=== PATIENT | female | born 1995 | race Caucasian/White ===

== ENCOUNTER 2017-04-19 00:18 | Emergency (ER) | payer SELFPAY ==
[2017-04-19 00:55] VITALS: BP 110/64; PULSE 82; TEMP 97.9; BMI 49.4
--- NOTE | 2017-04-19 00:58 | PDOC ---
History of Present Illness - General History Source: Patient Exam Limitations: No Limitations - History of Present Illness Initial Comments: 04/19/17 01:38 The patient is a 22 year old female with a significant PMH of asthma who presents to the emergency department with lower back pain beginning approximately 4 days ago. The patient reports getting up from a sitting position at Thanksgiving and suddenly developing lower back pain around the lumbar region. She describes the back pain as a burning sensation that is constant and without radiation. She reports taking Tylenol earlier today to minimal relief. 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 The patient denies chest pain, shortness of breath, headache and dizziness. Denies fever, chills, nausea, vomit, diarrhea and constipation. Denies dysuria, frequency, urgency and hematuria. Allergies: NKDA Past surgical history: None reported. Social history: No reported cigarette, alcohol, or drug use. PCP: None reported. <Dale Arias - Last Filed: 04/19/17 01:38> <Mariah Smith - Last Filed: 04/19/17 01:48> - General Chief Complaint: Back Pain Stated Complaint: LOWER BACK PAIN Time Seen by Provider: 04/19/17 00:58 Past History <Dale Arias - Last Filed: 04/19/17 01:38> - Past Medical History Asthma: No Cancer: No Cardiac Disorders: No Diabetes: No HTN: No Seizures: No Thyroid Disease: No - Suicide/Smoking/Psychosocial Hx Smoking History: Never smoked Have you smoked in the past 12 months: No Information on smoking cessation initiated: No Hx Alcohol Use: No Drug/Substance Use Hx: No Substance Use Type: None Hx Substance Use Treatment: No <Mariah Smith - Last Filed: 04/19/17 01:48> - Past Medical History Allergies/Adverse Reactions: Allergies Allergy/AdvReac Type Severity Reaction Status Date / Time strawberry [[place]] Allergy Severe Verified 04/19/17 00:47 No Known Drug Allergies Allergy Verified 04/19/17 00:47 Home Medications: Ambulatory Orders No Home Medications 0 dose .ROUTE UTDICT 01/22/13 Ibuprofen [Motrin -] 600 mg PO TID #21 tablet 04/19/17 Ibuprofen [Motrin -] 600 mg PO TID #30 tablet 04/19/17 Methocarbamol [Robaxin -] 500 mg PO TID #30 tablet 04/19/17 Review of Systems - Review of Systems Able to Perform ROS?: Yes Comments:: 04/19/17 01:39 GENERAL/CONSTITUTIONAL: No fever or chills. No weakness. HEAD, EYES, EARS, NOSE AND THROAT: No change in vision. No ear pain or discharge. No sore throat. CARDIOVASCULAR: No chest pain or shortness of breath. RESPIRATORY: No cough, wheezing, or hemoptysis. GASTROINTESTINAL: No nausea, vomiting, diarrhea or constipation. GENITOURINARY: No dysuria, frequency, or change in urination. MUSCULOSKELETAL: (+) Lower back pain. No joint pain. No neck pain. SKIN: No rash NEUROLOGIC: No headache, vertigo, loss of consciousness, or change in strength/ sensation. ENDOCRINE: No increased thirst. No abnormal weight change. HEMATOLOGIC/LYMPHATIC: No anemia, easy bleeding, or history of blood clots. ALLERGIC/IMMUNOLOGIC: No hives or skin allergy. <Dale Arias - Last Filed: 04/19/17 01:38> *Physical Exam - Vital Signs Last Vital Signs Temp Pulse Resp BP Pulse Ox 97.9 F 82 20 110/64 99 04/19/17 00:53 04/19/17 00:53 04/19/17 00:53 04/19/17 00:53 04/19/17 00:53 - Physical Exam Comments: 04/19/17 01:39 GENERAL: Awake, alert, and fully oriented, in no acute distress HEAD: No signs of trauma EYES: PERRLA, EOMI, sclera anicteric, conjunctiva clear ENT: Auricles normal inspection, hearing grossly normal, nares patent, oropharynx clear without exudates. Moist mucosa NECK: Normal ROM, supple, no lymphadenopathy, JVD, or masses LUNGS: Breath sounds equal, clear to auscultation bilaterally. No wheezes, and no crackles HEART: Regular rate and rhythm, normal S1 and S2, no murmurs, rubs or gallops ABDOMEN: Soft, nontender, normoactive bowel sounds. No guarding, no rebound. No masses EXTREMITIES: (+) Positive straight leg test to right leg. (+) Back pain reproducible with right leg movement. Normal range of motion, no edema. No clubbing or cyanosis. No cords, erythema, or tenderness NEUROLOGICAL: Cranial nerves II through XII grossly intact. Normal speech, normal gait SKIN: Warm, Dry, normal turgor, no rashes or lesions noted. <Dale Arias - Last Filed: 04/19/17 01:38> - Vital Signs Last Vital Signs Temp Pulse Resp BP Pulse Ox 97.9 F 82 20 110/64 99 04/19/17 00:53 04/19/17 00:53 04/19/17 00:53 04/19/17 00:53 04/19/17 00:53 <Mairah Smith - Last Filed: 04/19/17 01:48> ED Treatment Course - ADDITIONAL ORDERS Additional order review: Laboratory Results 04/19/17 00:51 Urine Color Yellow Urine Appearance Slcloudy Urine pH 5.0 Ur Specific Portal 1.030 Urine Protein Negative Urine Glucose (UA) Negative Urine Ketones Negative Urine Blood Negative Urine Nitrite Negative Urine Bilirubin Negative Urine Urobilinogen Negative Urine HCG, Qual Negative - Medications Given in the ED: ED Medications Discontinued Medications Generic Name Dose Route Start Last Admin Trade Name Freq PRN Reason Stop Dose Admin Methocarbamol 1,000 mg 04/19/17 01:10 04/19/17 01:12 Robaxin - PO 04/19/17 01:11 1,000 mg ONCE ONE Administration <Dale Arias - Last Filed: 04/19/17 01:38> Medical Decision Making - Medical Decision Making 04/19/17 01:48 Patient Name: KATIA DUBON THIS IS A PRELIMINARY REPORT FROM [facility] DATE OF SERVICE: 2017-04-19 01:12:49 IMAGES: 439 EXAM: CT LUMBAR SPINE without contrast HISTORY: Burning sensation COMPARISON: None. FINDINGS: This there is a mild grade 1 anterolisthesis of L5 on S1 associated with bilateral L5 pars defects/spondylolyses. There is also disc bulging at this level. These findings do not appear to narrow the canal but may narrow the foramina slightly. No other bony or disc degenerative disease is noted. No stenosis of the lumbar bony canal. No acute lumbar fracture <Mariah Smith - Last Filed: 04/19/17 01:48> *DC/Admit/Observation/Transfer - Attestations Scribe Attestion: 04/19/17 01:39 Documentation prepared by Dale Arias, acting as medical claims analyst for Mariah Smith MD. <Dale Arias - Last Filed: 04/19/17 01:38> - Discharge Dispostion Admit: No <Mariah Smith - Last Filed: 04/19/17 01:48> Diagnosis at time of Disposition: Bulging disc - Discharge Dispostion Disposition: HOME Condition at time of disposition: Stable - Prescriptions Prescriptions: Ibuprofen [Motrin -] 600 mg PO TID #21 tablet Ibuprofen [Motrin -] 600 mg PO TID #30 tablet Methocarbamol [Robaxin -] 500 mg PO TID #30 tablet
[2017-04-19 01:00] LABS: URINE APPEARANCE SLCLOUDY; URINE BILIRUBIN NEGATIVE (NEGATIVE); URINE BLOOD NEGATIVE (NEGATIVE); URINE COLOR YELLOW; URINE GLUCOSE (UA) NEGATIVE (NEGATIVE); URINE KETONE NEGATIVE (NEGATIVE); URINE NITRITE NEGATIVE (NEGATIVE); URINE PROTEIN NEGATIVE (NEGATIVE); URINE UROBILINOGEN NEGATIVE mg/dL (0.2-1.0)
[2017-04-19] MEDS ORDERED: METHOCARBAMOL 500 MG TABLET PO ONE (01:10)
[2017-04-19] MEDS ORDERED: METHOCARBAMOL 500 MG TABLET ONE (01:13)
[2017-04-19 12:27] LABS: URINE LEUK ESTERASE TRACE (NEGATIVE)
[2017-04-19 15:28] LABS: CALCIUM OXALATE CRYSTALS MANY /hpf (NONE SEEN)
== END 2017-04-19 02:07 | disposition home or self-care (01) ==
LOC: JER 00:18
DX: M51.27 Other intervertebral disc displacement, lumbosacral region (principal); X50.1XXA Overexertion from prolonged static or awkward postures, initial encounter; Y93.89 Activity, other specified; Y92.89 Other specified places as the place of occurrence of the external cause; Y99.8 Other external cause status
CPT/HCPCS: 72131-TC; 81003; 81015; 84703; 99282-25

== ENCOUNTER 2018-02-01 20:50 | Emergency (ER) | payer OTHER ==
[2018-02-01 21:08] VITALS: BP 119/68; PULSE 82; TEMP 98.2; BMI 35.7
--- NOTE | 2018-02-01 21:51 | PDOC ---
History of Present Illness <Lito Silveira - Last Filed: 02/02/18 00:24> - General History Source: Patient Exam Limitations: No Limitations - History of Present Illness Initial Comments: 02/01/18 21:44 Patient is a 23F with history of asthma here today after stepping with an inverted R foot today. Patient states that she was walking down stairs when her foot buckled in and heard a pop. Patient was not able to walk after. Denies head /neck trauma and falling to the ground. LMP 01/05. Given fentanyl by EMS. <CezarDon - Last Filed: 02/02/18 00:40> - General Chief Complaint: Injury Stated Complaint: FALL Time Seen by Provider: 02/01/18 21:13 Past History <Lito Silveira - Last Filed: 02/02/18 00:24> - Past Medical History Asthma: No Cancer: No Cardiac Disorders: No COPD: No Diabetes: No HTN: No Seizures: No Thyroid Disease: No - Immunization History Immunization Up to Date: Yes - Suicide/Smoking/Psychosocial Hx Smoking History: Never smoked Have you smoked in the past 12 months: No Information on smoking cessation initiated: No Hx Alcohol Use: No Drug/Substance Use Hx: No Substance Use Type: None Hx Substance Use Treatment: No <Don Robb - Last Filed: 02/02/18 00:40> - Past Medical History Allergies/Adverse Reactions: Allergies Allergy/AdvReac Type Severity Reaction Status Date / Time strawberry [[place]] Allergy Severe Verified 02/01/18 21:06 No Known Drug Allergies Allergy Verified 02/01/18 21:06 Home Medications: Ambulatory Orders No Home Medications 0 dose .ROUTE UTDICT 01/22/13 Review of Systems - Review of Systems Comments:: 02/01/18 21:51 GENERAL/CONSTITUTIONAL: No fever or chills. No weakness. HEAD, EYES, EARS, NOSE AND THROAT: No change in vision. No ear pain or discharge. No sore throat. CARDIOVASCULAR: No chest pain or shortness of breath RESPIRATORY: No cough, wheezing, or hemoptysis. GASTROINTESTINAL: No nausea, vomiting, diarrhea or constipation. GENITOURINARY: No dysuria, frequency, or change in urination. MUSCULOSKELETAL: +r foot pain. No neck or back pain. SKIN: No rash NEUROLOGIC: No headache, vertigo, loss of consciousness, or change in strength/ sensation. ENDOCRINE: No increased thirst. No abnormal weight change HEMATOLOGIC/LYMPHATIC: No anemia, easy bleeding, or history of blood clots. ALLERGIC/IMMUNOLOGIC: No hives or skin allergy. <Don Robb - Last Filed: 02/02/18 00:40> *Physical Exam - Vital Signs Last Vital Signs Temp Pulse Resp BP Pulse Ox 98.2 F 82 22 119/68 98 02/01/18 21:07 02/01/18 21:07 02/01/18 21:07 02/01/18 21:07 02/01/18 21:07 <Lito Silveira - Last Filed: 02/02/18 00:24> - Vital Signs Last Vital Signs Temp Pulse Resp BP Pulse Ox 98.2 F 82 22 119/68 98 02/01/18 21:07 02/01/18 21:07 02/01/18 21:07 02/01/18 21:07 02/01/18 21:07 - Physical Exam Comments: 02/01/18 21:52 GENERAL: Awake, alert, and fully oriented, in no acute distress R LEG: Tender to tib/fib compression, hematoma on lateral aspect of hematoma, diffusely tender, neurovascularly intact HEAD: No signs of trauma, normocephalic, atraumatic EYES: PERRLA, EOMI, sclera anicteric, conjunctiva clear ENT: Auricles normal inspection, hearing grossly normal, nares patent, oropharynx clear without exudates. Moist mucosa NECK: Normal ROM, supple, no lymphadenopathy, JVD, or masses LUNGS: No distress, speaks full sentences, clear to auscultation bilaterally HEART: Regular rate and rhythm, normal S1 and S2, no murmurs, rubs or gallops, peripheral pulses normal and equal bilaterally. ABDOMEN: Soft, nontender, normoactive bowel sounds. No guarding, no rebound. No masses EXTREMITIES: Normal inspection, Normal range of motion, no edema. No clubbing or cyanosis. NEUROLOGICAL: Cranial nerves II through XII grossly intact. Normal speech, no focal sensorimotor deficits SKIN: Warm, Dry, normal turgor, no rashes or lesions noted. <Don Robb - Last Filed: 02/02/18 00:40> ED Treatment Course - LABORATORY CBC & Chemistry Diagram: 02/01/18 22:10 02/01/18 22:10 - ADDITIONAL ORDERS Additional order review: Laboratory Results 02/01/18 02/01/18 22:10 22:10 Sodium 141 Potassium 3.7 Chloride 107 Carbon Dioxide 27 Anion Gap 7 L BUN 11 Creatinine 0.8 Creat Clearance w eGFR > 60 Random Glucose 110 H Calcium 8.5 Total Bilirubin 0.4 AST 13 L ALT 24 Alkaline Phosphatase 115 Total Protein 7.4 Albumin 3.6 Serum , Qual Negative 02/01/18 22:10 RBC 4.86 MCV 81.2 MCHC 32.4 RDW 14.6 MPV 8.3 - RADIOLOGY Radiograph Interpretation: 02/02/18 00:24 EXAM: XR ANKLE \T\ FOOT-RIGHT* HISTORY: Inversion injury with severe pain COMPARISON: None. FINDINGS: There is no fracture or dislocation of the right ankle. There is soft tissue edema most prominently overlying the lateral malleolus IMPRESSION: No fracture or dislocation of the right ankle. Soft tissue edema may reflect ligamentous injury <Lito Silveira - Last Filed: 02/02/18 00:24> - LABORATORY CBC & Chemistry Diagram: 02/01/18 22:10 02/01/18 22:10 - RADIOLOGY Radiology Studies Ordered: Category Date Time Status ANKLE & FOOT-RIGHT* [RAD] Stat Radiology 02/01/18 21:22 Ordered KNEE 3 POS-RIGHT [RAD] Stat Radiology 02/01/18 21:22 Ordered LEG TIB/FIB-RIGHT [RAD] Stat Radiology 02/01/18 21:22 Ordered <Don Robb - Last Filed: 02/02/18 00:40> Medical Decision Making - Medical Decision Making 02/01/18 21:53 Patient is 23F here today with ankle pain. Suspect fracture. Will evaluate with serum preg, cbc, cmp, x-rays of foot to knee. Pain currently controlled, given ice. 02/02/18 00:38 X-rays show no acute fracture. Suspect ligamentous injury. Will aircast and give crutches. Will discharge with ortho follow up. <Don Robb - Last Filed: 02/02/18 00:40> *DC/Admit/Observation/Transfer - Attestations Scribe Attestion: 02/02/18 00:24 Documentation prepared by Lito Silveira, acting as medical claims manager for Alisson Antunez MD. <Lito Silveira - Last Filed: 02/02/18 00:24> - Discharge Dispostion Decision to Admit order: No <Don Robb - Last Filed: 02/02/18 00:40> Diagnosis at time of Disposition: Ankle sprain - Discharge Dispostion Disposition: HOME Condition at time of disposition: Good - Referrals Referrals: Aakash Kaufman [Primary Care Provider] - - Patient Instructions Printed Discharge Instructions: DI for Ankle Sprain Additional Instructions: Please follow up with ortho this week. Please return if you have any new, worsening or concerning symptoms. - Post Discharge Activity Forms/Work/School Notes: Back to Work
[2018-02-01 22:19] LABS: HEMATOCRIT 39.5 % (32.4-45.2); HEMOGLOBIN 12.8 GM/dL (10.7-15.3); MCH 26.3 pg (25.7-33.7); MCHC 32.4 g/dl (32.0-36.0); MEAN CELL VOLUME 81.2 fl (80-96); MEAN PLT VOLUME 8.3 fl (7.5-11.1); PLATELET COUNT 300 K/MM3 (134-434); RBC 4.86 M/mm3 (3.60-5.2); RDW 14.6 % (11.6-15.6); WHITE BLOOD COUNT 7.8 K/mm3 (4.0-10.0)
[2018-02-01 22:45] LABS: ALBUMIN 3.6 g/dl (3.4-5.0); ALK PHOS 115 U/L (45-117); ANION GAP 7 MMOL/L (8-16); BILIRUBIN,TOTAL 0.4 mg/dL (0.2-1.0); BLOOD UREA NITROGEN 11 mg/dL (7-18); CALCIUM 8.5 mg/dL (8.5-10.1); CHLORIDE 107 mmol/L (98-107); CO2 27 mmol/L (21-32); CREATININE 0.8 mg/dL (0.55-1.02); GLUCOSE,RANDOM 110 mg/dL (74-106); POTASSIUM 3.7 mmol/L (3.5-5.1); SGOT/AST 13 U/L (15-37); SGPT/ALT 24 U/L (12-78); SODIUM 141 mmol/L (136-145); TOT PROT 7.4 g/dl (6.4-8.2)
--- NOTE | 2018-02-01 23:07 | PDOC ---
Attending Attestation - HPI HPI: 02/01/18 23:12 The patient is a 23 year old female, with a significant past medical history of asthma, who presents to the emergency department with, right ankle pain. As per patient, she was walking down the stairs when she fell and heard her foot pop. She was unable to ambulate s/p fall. As per EMS, she was given Fentanyl in the field. She denies any trauma to the head or loss of consciousness. She denies recent fevers, chills, headache or dizziness. She denies recent nausea, vomit, diarrhea or constipation. She denies recent dysuria, frequency, urgency or hematuria. She denies recent chest pain or shortness of breath. Allergies: [place] Primary Care Physician: Dr. Kaufman - Physicial Exam PE: 02/01/18 23:58 GENERAL: The patient is in no acute distress. HEAD: Normal with no signs of trauma. EYES: PERRLA, EOMI, sclera anicteric, conjunctiva clear. ENT: Ears normal, nares patent, oropharynx clear without exudates. Moist mucous membranes. NECK: Normal range of motion, supple without lymphadenopathy, JVD, or masses. LUNGS: Breath sounds equal, clear to auscultation bilaterally. No wheezes, and no crackles. HEART:Regular rate and rhythm, normal S1 and S2 without murmur, rub or gallop. ABDOMEN: Soft, nontender, normoactive bowel sounds. No guarding, no rebound. No masses palpable. +EXTREMITIES: Swelling and tenderness of the right lateral malleolus. Limited ROM secondary to pain. 2+ DP and PT pulses. Sensations are equal and intact. No clubbing or cyanosis. No erythema. NEUROLOGICAL: Cranial nerves II through XII grossly intact. Normal speech. No focal neurological deficits. MUSCULOSKELETAL: Back non-tender to palpation, no CVA tenderness SKIN: Warm, Dry, normal turgor, no rashes or lesions noted. <Lito Silveira - Last Filed: 02/02/18 00:24> - Resident Resident Name: Don Robb - ED Attending Attestation I have performed the following: I have examined & evaluated the patient, The case was reviewed & discussed with the resident, I agree w/resident's findings & plan, Exceptions are as noted - Medical Decision Making 02/02/18 22:26 RLA lateral malleolar swelling and tenderness to palpation No bruising Pt has pain with attempting to ambulate Xray demonstrates no fracture Presentation consistent with Ankle sprain Will place in air cast Pain meds Re assess Clinical impression: Right ankle sprain, initial presentation <Alisson Antunez - Last Filed: 02/02/18 22:28> Attestations - Attestations 02/01/18 23:12 Documentation prepared by Lito Silveira, acting as medical records field technician for Alisson Antunez MD. <Lito Silveira - Last Filed: 02/02/18 00:24>
[2018-02-02] MEDS ORDERED: KETOROLAC TROMETHAMINE 15 MG/ML VIAL IVPUSH ONE (01:11)
[2018-02-02] MEDS ORDERED: KETOROLAC TROMETHAMINE 15 MG/ML VIAL ONE (01:15)
== END 2018-02-02 00:55 | disposition home or self-care (01) ==
LOC: JER 20:50
PROC: 2W3QX1Z Immobilization of Right Lower Leg using Splint (ICD-10-PCS; principal; 2018-02-01)
DX: S93.491A Sprain of other ligament of right ankle, initial encounter (principal); X50.1XXA Overexertion from prolonged static or awkward postures, initial encounter; Y93.89 Activity, other specified; Y92.89 Other specified places as the place of occurrence of the external cause; Y99.8 Other external cause status
CPT/HCPCS: 29515; 36415; 73562-TC-RT-FY; 73590-TC-RT-FY; 73610-TC-RT-FY; 73630-TC-RT-FY; 80053; 84703; 85027; 99281-25

== ENCOUNTER 2023-06-15 16:32 | Emergency (ER) | payer OTHER ==
[2023-06-15 16:48] VITALS: BP 133/74; PULSE 80; RESP 20; TEMP 98.2; BMI 33.6
[2023-06-15 18:12] LABS: HCG,QUALITATIVE URINE Negative
[2023-06-15 18:16] LABS: EPI CELLS >36 /uL (0-25.1); HYALINE CASTS 60 /uL (0-3.1); PH,URINE 5.5 (5.0-8.0); URINE APPEARANCE TURBID; URINE BACTERIA 2359 /uL (0-1359); URINE BILIRUBIN NEGATIVE (NEGATIVE); URINE COLOR DK YELLOW; URINE GLUCOSE (UA) NEGATIVE (NEGATIVE); URINE KETONE NEGATIVE (NEGATIVE); URINE LEUK ESTERASE 1+ (NEGATIVE); URINE NITRITE NEGATIVE (NEGATIVE); URINE PROTEIN 1+ (NEGATIVE); URINE WBC 830 /uL (0-25.8)
[2023-06-15 19:59] LABS: URINE RBC 39.8 /uL (0-23.9)
== END 2023-06-15 19:30 | disposition home or self-care (01) ==
LOC: JER 16:32
DX: N30.01 Acute cystitis with hematuria (principal); R42 Dizziness and giddiness; B34.9 Viral infection, unspecified; R09.81 Nasal congestion; R35.0 Frequency of micturition; Z20.822 Contact with and (suspected) exposure to COVID-19
CPT/HCPCS: 0241U-QW; 81003; 84703; 87086; 99283-25

== ENCOUNTER 2024-01-10 08:21 | Emergency (ER) | payer OTHER ==
[2024-01-10 08:30] VITALS: BP 118/85; PULSE 75; RESP 17; TEMP 98; BMI 34.4
[2024-01-10] MEDS ORDERED: ACETAMINOPHEN INJECTION 100 ML IVPB ONE (09:49)
[2024-01-10] MEDS: ACETAMINOPHEN 1000 MG/100 ML BAG IVPB ONE (09:56)
[2024-01-10] MEDS: SODIUM CHLORIDE 1,000 ML IV STA (09:56)
[2024-01-10 09:59] LABS: EPI CELLS >36 /uL (0-25.1); HYALINE CASTS 4 /uL (0-3.1); URINE APPEARANCE CLOUDY; URINE BACTERIA 1033 /uL (0-1359); URINE BILIRUBIN NEGATIVE (NEGATIVE); URINE COLOR YELLOW; URINE GLUCOSE (UA) NEGATIVE (NEGATIVE); URINE KETONE NEGATIVE (NEGATIVE); URINE LEUK ESTERASE TRACE (NEGATIVE); URINE NITRITE NEGATIVE (NEGATIVE); URINE PROTEIN TRACE (NEGATIVE); URINE WBC 49 /uL (0-25.8)
[2024-01-10 10:03] LABS: BASO % 0.3 % (0-2.0); EOS % 5.3 % (0-4.5); HEMATOCRIT 38.2 % (32.4-45.2); HEMOGLOBIN 12.5 GM/dL (10.7-15.3); LYMPH % 20.5 % (8-40); MCH 27.6 pg (25.7-33.7); MCHC 32.7 g/dl (32.0-36.0); MEAN CELL VOLUME 84.3 fl (80-96); MONO % 6.3 % (3.8-10.2); NEUT % 67.6 % (42.8-82.8); PLATELET COUNT 281 10^3/uL (134-434); RBC 4.53 M/mm3 (3.60-5.2); RDW 14.2 % (11.6-15.6); WHITE BLOOD COUNT 7.4 K/mm3 (4.0-10.0)
[2024-01-10 10:31] LABS: CHLORIDE 104 mmol/L (98-107); SODIUM 132 mmol/L (136-145)
[2024-01-10 10:32] LABS: CALCIUM 8.7 mg/dL (8.5-10.1)
[2024-01-10 10:33] LABS: ALBUMIN 3.6 g/dl (3.4-5.0); BLOOD UREA NITROGEN 6.4 mg/dL (7-18); CO2 24 mmol/L (21-32); GLUCOSE,RANDOM 82 mg/dL (74-106)
[2024-01-10 10:36] LABS: CREATININE 0.7 mg/dL (0.55-1.3); SGOT/AST 55 U/L (15-37); SGPT/ALT 29 U/L (13-61)
[2024-01-10 10:37] LABS: BILIRUBIN,TOTAL 0.4 mg/dL (0.2-1); TOT PROT 7.8 g/dl (6.4-8.2)
[2024-01-10 10:39] LABS: ALK PHOS 84 U/L (45-117); ANION GAP 4 mmol/L (4-13); POTASSIUM 6.9 mmol/L (3.5-5.1)
[2024-01-10 12:27] LABS: CALCIUM 8.3 mg/dL (8.5-10.1)
[2024-01-10 12:29] LABS: BLOOD UREA NITROGEN 5.8 mg/dL (7-18)
[2024-01-10 12:32] LABS: CREATININE 0.5 mg/dL (0.55-1.3)
[2024-01-10] MEDS ORDERED: NITROFURANTOIN MACROCRYSTAL 50 MG CAPSULE (FP) ONE (12:38)
[2024-01-10] MEDS: NITROFURANTOIN MONOHYD/M-CRYST 100 MG CAPSULE PO SCH (12:41)
[2024-01-10 13:19] LABS: URINE RBC 119.5 /uL (0-23.9)
[2024-01-10 14:04] LABS: HIV INTERPRETATION NEGATIVE (NEGATIVE)
== END 2024-01-10 13:38 | disposition home or self-care (01) ==
LOC: JER 08:21
PROC: 3E033NZ Introduction of Analgesics, Hypnotics, Sedatives into Peripheral Vein, Percutaneous Approach (ICD-10-PCS; principal; 2024-01-10)
PROC: 3E0337Z Introduction of Electrolytic and Water Balance Substance into Peripheral Vein, Percutaneous Approach (ICD-10-PCS; 2024-01-10)
DX: O23.41 Unspecified infection of urinary tract in pregnancy, first trimester (principal); O26.891 Other specified pregnancy related conditions, first trimester; R10.2 Pelvic and perineal pain; R10.32 Left lower quadrant pain; O99.891 Other specified diseases and conditions complicating pregnancy; R11.0 Nausea; R06.2 Wheezing; Z3A.01 Less than 8 weeks gestation of pregnancy
CPT/HCPCS: 36415; 76817-TC; 80048; 80053; 81003; 84702; 84703; 85025; 86803; 86850; 86900; 86901; 87077; 87086; 87389; 96361; 96374; 99284-25; J0131